=== PATIENT | male | born 1985 | race Caucasian/White ===

== ENCOUNTER 2019-11-06 00:01 | Inpatient (IN) | payer OTHER ==
[~2019-11-06] VITALS: Ht 182.9 cm; Wt 112.9 kg
[~2019-11-06 00:01] MED LIST: DOXY100 PO; Percocet 5-3251 EACH PO; Triderm30 GM TP
[2019-11-06 00:41] LABS: Hematocrit 49.4 % (37.0-53.0); Hemoglobin 16.5 g/dL (13.5-17.5); Mean Corpuscular HGB 29.5 pg (26.0-34.0); Mean Corpuscular HGB Conc 33.4 g/dL (31.5-36.5); Mean Corpuscular Volume 88 fL (80-100); Mean Platelet Volume 11.4 fL (9.1-12.4); Platelet Count 213 K/mm3 (150-400); RDW Coefficient Variation 11.9 % (11.7-14.2); RDW Standard Deviation 38.4 fL (35.1-46.3); White Blood Cell Count 7.02 K/mm3 (4.00-11.30)
[2019-11-06 01:16] LABS: Alanine Aminotransfer (ALT/SGP 64 U/L (12-78); Albumin, Blood 4.4 g/dL (3.4-5.0); Albumin/Globulin Ratio 1.2 (0.8-1.8); Alk Phos 118 U/L (50-136); Anion Gap 6 mmol/L (6-16); Aspartate Aminotrans (AST/SGOT 127 U/L (12-37); Bilirubin, Total 0.6 mg/dL (0.1-1.0); Blood Urea Nitrogen 17 mg/dL (8-24); Bun/Creatinine Ratio 17.1 (12.0-20.0); CHOL/HDL RATIO 4.8; CO2, Blood 29 mmol/L (21-32); Calcium, Blood 9.3 mg/dL (8.5-10.1); Chloride, Blood 104 mmol/L (98-108); Cholesterol 181 mg/dL (50-200); Globulin, Blood 3.7 g/dL (2.2-4.0); Glomerular Filtration Rate >60 (60-); Glucose, Blood 106 mg/dL (70-99); HDL Cholesterol 38 mg/dL (>39); LDL/HDL RATIO 3.3; Low Density Lipoprotein Chol 124 mg/dL (0-110); Magnesium, Blood 2.3 mg/dL (1.6-2.4); Potassium, Blood 3.8 mmol/L (3.5-5.5); Sodium, Blood 139 mmol/L (136-145); Total Protein, Blood 8.1 g/dL (6.4-8.2); Triglycerides 93 mg/dL (30-140); Very Low Density Lipoprot Chol 18 mg/dL (6-28)
--- NOTE | 2019-11-06 01:40 | NUR ---
PATIENT ARRIVED FROM [facility] VIA BED. PT. HOOKED UP TO MONITOR. REC'D. REPORT FROM RESERVOIR CARETAKER AND [employer] RN. TR BAND TO RIGHT WRIST; POSITIVE CMS, PT. C/O SLIGHT NUMBNESS/COOLNESS TO RIGHT HAND. 0150: PATIENT TAKEN TO CT VIA BED FOR CTA WITH RN AND MONITOR. 0200: PATIENT BACK FROM CT. PATIENT ORIENTED TO ROOM. AT BEDSIDE; STATES SHE RECEIVED UPDATES FROM MD. HEPARIN DRIP STARTED PER MD ORDERS. PATIENT GIVEN LASIX 20MG IVP PER MD ORDERS. PER DR. CANELA, TR BAND TO REMAIN IN PLACE UNTIL DAY SHIFT. PATIENT INSTRUCTED TO NOT USE RIGHT HAND; VERBALIZES UNDERSTANDING. PATIENT ORIENTED TO ROOM, AND CALL LIGHT. INFORMED REGARDING VISITING HOURS; TO STAY AT BEDSIDE DUE TO HOUR.
[2019-11-06] MEDS ORDERED: Hair, Skin & N1 EACH PO (02:21)
[2019-11-06] MEDS ORDERED: FLAXSEED1000 MG PO (02:22)
[2019-11-06] MEDS ORDERED: TURMERIC500 M2 PO (02:22)
[2019-11-06] MEDS ORDERED: FAMO20 PO (02:23)
[2019-11-06] MEDS ORDERED: PROBIOTIC PO (02:28)
[2019-11-06 03:10] LABS: U Amphetamine Screen Not Detected; U Barbituate Screen Not Detected; U Benzodiazapine Screen Not Detected; U Buprenorphine Screen Not Detected; U Cannabinoids Screen Not Detected; U Cocaine Screen Not Detected; U Methadone Screen Not Detected; U Methamphetamine Screen Not Detected; U Opiates Screen DETECTED; U Oxycodone Screen Not Detected; U Phencyclidine Screen Not Detected; U Propoxyphene Screen Not Detected
[2019-11-06 05:32] LABS: BASOPHILS ABSOLUTE AUTO 0.05 K/mm3 (0.00-0.23); BASOPHILS PERCENT AUTO 1 % (0-2); EOSINOPHILS ABSOLUTE AUTO 0.26 K/mm3 (0.00-0.68); EOSINOPHILS PERCENT AUTO 3 % (0-6); Hematocrit 48.5 % (37.0-53.0); Hemoglobin 16.2 g/dL (13.5-17.5); IMMATURE GRAN ABSOLUTE AUTO 0.02 K/mm3 (0.00-0.10); IMMATURE GRAN PERCENT AUTO 0 % (0-1); LYMPHOCYTES ABSOLUTE AUTO 1.39 K/mm3 (0.84-5.20); LYMPHOCYTES PERCENT AUTO 16 % (21-46); MONOCYTES ABSOLUTE AUTO 0.61 K/mm3 (0.16-1.47); MONOCYTES PERCENT AUTO 7 % (4-13); Mean Corpuscular HGB 29.6 pg (26.0-34.0); Mean Corpuscular HGB Conc 33.4 g/dL (31.5-36.5); Mean Corpuscular Volume 89 fL (80-100); Mean Platelet Volume 11.4 fL (9.1-12.4); NEUTROPHILS ABSOLUTE AUTO 6.29 K/mm3 (1.96-9.15); NEUTROPHILS PERCENT AUTO 73 % (41-73); Platelet Count 207 K/mm3 (150-400); RDW Coefficient Variation 11.9 % (11.7-14.2); RDW Standard Deviation 38.8 fL (35.1-46.3); Red Blood Cell Count 5.48 M/mm3 (4.30-5.90); White Blood Cell Count 8.62 K/mm3 (4.00-11.30)
[2019-11-06 06:05] LABS: Anion Gap 8 mmol/L (6-16); Blood Urea Nitrogen 13 mg/dL (8-24); CO2, Blood 26 mmol/L (21-32); Calcium, Blood 9.3 mg/dL (8.5-10.1); Chloride, Blood 105 mmol/L (98-108); Creatine Kinase MB 83.7 ng/mL (0.0-3.6); Creatinine, Blood 0.81 mg/dL (0.60-1.20); Glomerular Filtration Rate >60 (60-); Glucose, Blood 99 mg/dL (70-99); Potassium, Blood 3.6 mmol/L (3.5-5.5); Sodium, Blood 139 mmol/L (136-145)
[2019-11-06 06:07] LABS: CPK Creatine Kinase 1056 U/L (39-308); Creatine Kinase MB Index 7.9 (0.0-4.0)
[2019-11-06 06:09] LABS: Troponin I >200.000 ng/mL (0.000-0.040)
--- NOTE | 2019-11-06 06:21 | NUR ---
CALLED DR. CANELA WITH CRITICAL TROPONIN LEVEL >200; UPDATED ON OTHER LABS INCLUDING C-REACTIVE PROTEIN, CKMB, AND POTASSIUM. REC'D. ORDERS TO DRAW SERIAL CKMB AND TROPONIN LEVELS Q6H UNTIL TRENDING DOWN.
--- NOTE | 2019-11-06 06:36 | NUR ---
SHIFT SUMMARY: PATIENT SLEEPING SINCE CHIEF ACCOUNTING OFFICER ADMISSION; DENIES CHEST PAIN. HEPARIN DRIP INFUSING AT 13U/KG/HR VIA PIV. TR BAND REMAINS IN PLACE TO RIGHT WRIST; GOOD CMS; CAP REFILL <3 SECONDS; WRIST ABOVE BAND SOFT WITH NO HEMATOMA PALPATED. TROPONIN LEVEL TRENDING UP; CARDIOLOGY AWARE. PATIENT GIVEN LASIX 20MG IVP THIS AM; VOIDING LARGE AMOUNTS CLEAR, YELLOW URINE. PLAN IS FOR SERIAL CKMB/TROPONIN LEVELS AND CARDIAC ECHO. THIS AM. AT BEDSIDE. CALL MELGAR IN REACH.
--- NOTE | 2019-11-06 08:34 | NUR ---
ASSUMED CARE: REPORT RECEIVED FROM DELGADO Serrano RN. ASSUMED CARE OF THIS PT AT APPROX 0700. ON ASSESSMENT, THE PT IS RESTING QUIETLY. HE AWAKENS EASILY TO VERBAL STIMULUS & IS ALERT/ORIENTED TO ALL AT THAT TIME. PT DENIES CP AT THIS TIME, BUT DOES C/O A "BURNING SENSATION" WHEN TAKING IN "TOO BIG OF A BREATH." LS ARE CLEAR T/O, PT ON RA W/ O2 SATS > 92%. MONITOR SHOWS SB-SR W/ HR 50-60s, BP STABLE. TR BAND IN PLACE TO R WRIST W/ 12 CC AIR INITIALLY ON PLACEMENT. SITE WNL, NO BLEEDING, BRUISING OR HEMATOMA FORMATION NOTED. PT STS WRIST FEELING "STIFF" BUT DENIES N/T, CAP REFILL < 3 SECONDS TO AFFECTED DIGITS. PT HAS NO GI/ COMPLAINTS, IS TOLERATING PO INTAKE WELL & VOIDING W/O DIFFICULTY. SKIN CONDITION OVERALL CDI, EXCEPT FOR ANGIO PUNCTURE SITE, ABOVE. HEPARIN INFUSING PER PHARMACY MANAGEMENT, VERIFIED W/ OFFGOING RN. WILL CONTINUE TO MONITOR & UPDATE NEEDED.
--- NOTE | 2019-11-06 09:11 | NUR ---
Echocardiogram completed.
--- NOTE | 2019-11-06 10:14 | NUR ---
DR CANELA: PROVIDER AT BEDSIDE TO EVAL PT. PLAN IS FOR HEPARIN TO BE STOPPED & TR BAND REMOVAL TO BEGIN 2 HRS AFTER HEPARIN IS STOPPED. PT MAY BE PCU STATUS NOW. PLAN IS FOR ONE MORE NIGHT OF HOSPITAL OBSERVATION & FOR PT TO D/C TOMORROW. CARDIAC MRI WILL BE REQUIRED AN OUTPATIENT PER DR PAUL. ORDERS HAVE BEEN PLACED. HEPARIN STOPPED AT 1005.
[2019-11-06 11:30] LABS: CPK Creatine Kinase 733 U/L (39-308); Creatine Kinase MB 54.5 ng/mL (0.0-3.6); Creatine Kinase MB Index 7.4 (0.0-4.0)
[2019-11-06 11:52] LABS: Troponin I >200.000 ng/mL (0.000-0.040)
--- NOTE | 2019-11-06 17:40 | NUR ---
SHIFT SUMMARY: NO ACUTE CHANGES SINCE PRIOR UPDATES. PT HAS HAD ONE EPISODE OF "FLUTTERING" IN CHEST WHICH CAUSED A SMALL AMNT OF CHEST PAIN. 5 BEAT RUN OF VT NOTED AT THAT TIME & HAS BEEN REPORTED TO DR CANELA. HE HAS HAD NO FURTHER CP THIS SHIFT. TR BAND TO R WRIST DEFLATED THIS AFTERNOON & REMOVED AT 1700, OPSITE PLACED. MONITOR SHOWS SR W/ HR 60-70s, OCCASIONAL PACs, BP STABLE. PT HAS NO GI/ COMPLAINTS. SKIN CONDITION UNCHANGED. PT IS PCU STATUS. WILL CONTINUE TO MONITOR & REPORT OFF TO ONCOMING RN.
[2019-11-06 17:51] LABS: CPK Creatine Kinase 548 U/L (39-308); Creatine Kinase MB 36.6 ng/mL (0.0-3.6); Creatine Kinase MB Index 6.7 (0.0-4.0)
[2019-11-06 18:48] LABS: Troponin I >200.000 ng/mL (0.000-0.040)
--- NOTE | 2019-11-06 19:26 | NUR ---
ASSUMED CARE OF PATIENT. REC'D. REPORT FROM OFFGOING RN. PATIENT DENIES CHEST PAIN OR SOB. TR BAND REMOVED AT 1700; OPSITE DRESSING IN PLACE, D/I; SITE WNL, NO HEMATOMA. CALL MELGAR WITHIN REACH. CONTINUE POC.
--- NOTE | 2019-11-06 20:00 | NUR ---
PT TRANSFERRED TO [facility] FROM ICU VIA WHEELCHAIR. TRANSFERRED SELF TO BED. PT ADMITTED FOR A STEMI, WAS TAKEN TO VISUAL DEVELOPER WHERE NO OCCLUSION WAS FOUND. PT TROPONIN WAS 170 AND NOW IS OVER 200. PT IS NEUROLOGICALLY INTACT. IN SR-SB WITH OCC PACS. SBP STABLE. LUNG SOUNDS CLEAR AND ON RA. PT HAS 2 IVS, ONE IN EACH ARM. PT HAD TR BAND IN PLACE BUT HAS BEEN TAKEN DOWN AND HAS OPSITE COVERING SITE. NO HEMATOMA PRESENT, PULSE CAN BE FELT, NO OOZING OR BLEEDING. ARM BOARD IS NOT IN PLACE, APPARENTLY PT DID NOT TOLERATE IT. PT IS AWARE THAT HE CAN NOT USE THAT ARM/WRIST. VOIDS IN URINAL. INDEPENDENT IN RM. HAS SOME MILD CHEST PRESSURE THAT GETS WORSE WITH MOVEMENT AND C/O INDIGESTION. WILL CONTINUE TO MONITOR
--- NOTE | 2019-11-06 22:45 | NUR ---
REPORT GIVEN TO REY WHARTON IN PCU. PATIENT MOVED VIA W/C TO ROOM PCU 12.
[2019-11-06 23:54] LABS: CPK Creatine Kinase 470 U/L (39-308); Creatine Kinase MB 26.8 ng/mL (0.0-3.6); Creatine Kinase MB Index 5.7 (0.0-4.0)
[2019-11-07] LABS: Troponin I >200.000 ng/mL (0.000-0.040)
--- NOTE | 2019-11-07 05:46 | NUR ---
SHIFT SUMMARY: NO ACUTE CHANGES T/O SHIFT. VSS. R RADIAL ACCESS SITE OPSITE DRESSING C/D/I. NO HEMATOMA, OOZING, BLEEDING AT SITE. PT AGREED TO WEAR ARMBOARD WHILE SLEEPING TO KEEP WRIST IMMOBILIZED. WILL PASS REPORT TO ONCOMING RN
[2019-11-07 05:48] LABS: CPK Creatine Kinase 537 U/L (39-308); Creatine Kinase MB 29.9 ng/mL (0.0-3.6); Creatine Kinase MB Index 5.6 (0.0-4.0)
[2019-11-07 06:00] LABS: Troponin I >200.000 ng/mL (0.000-0.040)
--- NOTE | 2019-11-07 07:45 | NUR ---
AM ASSESSMENT: Pt resting in bed. Denies CP, SOB. States that he is feeling good. VSS. LS clear. HR reg. BT positive. R wrist TR band site without hematoma, swelling, oozing or bleeding. Pt denies other needs. Call light in reach.
[2019-11-07] MEDS ORDERED: OMEP20ER PO (14:47)
[2019-11-07] MEDS ORDERED: ASPI81CH PO (14:47)
--- NOTE | 2019-11-07 15:30 | NUR ---
discharge: Pt was given verbal and written discharge instructions. Denies questions. IV was discontinued, cath intact. Follow up appoientments scheduled and given to pt. Pt ambulated out with TAXICAB COORDINATOR. Stable at time of discharge.
== END 2019-11-07 15:20 | disposition home or self-care (01) | DRG 282 ==
LOC: ER 00:01 → ICUE 00:59 → ICUW 00:59 → ICUE 01:30 → PCU 23:03
PROVIDERS: Emergency Medicine; ADMIT Internal Medicine Interventional Cardiology
PROC: 4A023N7 Measurement of Cardiac Sampling and Pressure, Left Heart, Percutaneous Approach (ICD-10-PCS; principal; 2019-11-06)
PROC: B2111ZZ Fluoroscopy of Multiple Coronary Arteries using Low Osmolar Contrast (ICD-10-PCS; 2019-11-06)
DX: I21.3 ST elevation (STEMI) myocardial infarction of unspecified site (principal); E66.9 Obesity, unspecified; Z68.33 Body mass index [BMI] 33.0-33.9, adult; I10 Essential (primary) hypertension
CPT/HCPCS: 36415; 71275; 76937; 80048; 80053; 80061; 82550; 82553; 83735; 83880; 84484; 85025; 85027; 85347; 85651; 86141; 86850; 86900; 86901; 93005; 93010; 93306; 93308; 93458; 99152; 99285-25; A9270-GY; C1769; C1894; J1644; J1940; J2250; J2270; J2405; J3010; J7030; J7040; Q9967

== ENCOUNTER → 2022-02-13 | Outpatient (CLI) | payer SELFPAY ==
[~2022-02-13] MED LIST changes: +ASPI81CH PO; +FAMO20 PO; +FLAXSEED1000 MG PO; +Hair, Skin & N1 EACH PO; +OMEP20ER PO; +PROBIOTIC PO; +TURMERIC500 M2 PO
== END | disposition home or self-care (01) ==
DX: R10.31 Right lower quadrant pain (principal)